=== PATIENT | male | born 1975 | race Caucasian/White ===

== ENCOUNTER 2025-06-12 11:25 | Emergency (ER) | payer SELFPAY ==
[~2025-06-12 11:25] MED LIST: Iopamidol 370 76% 100 ML VIAL ONE
[2025-06-12] MEDS ORDERED: Ondansetron PF 4 MG/2 ML Vial ONE (11:41)
[2025-06-12] MEDS ORDERED: HYDROmorphone 0.5 MG/0.5 ML SYRINGE ONE (11:41)
[2025-06-12] MEDS ORDERED: Lidocaine 1% w/Epinephrine 1:100K 20 ML VIAL ONE (11:44)
[2025-06-12] MEDS ORDERED: Lidocaine 1% (PF) 30 ML VIAL ONE (11:45)
[2025-06-12 11:47] LABS: #Basophils 0.1 thou/uL (0.0-0.2); #Eosinophils 0.1 thou/uL (0.0-0.7); #Lymphocytes 3.5 thou/uL (1.20-3.40); #Monocytes 0.5 thou/uL (0.11-0.59); #Neutrophils 4.2 thou/uL (1.40-6.50); %Basophils 1.3 % (0.0-1.0); %Eosinophils 1.3 % (0.0-10.0); %Lymphocytes 41.4 % (21.0-51.0); %Monocytes 6.4 % (0.0-10.0); %Neutrophils 49.6 % (42.0-75.0); Hematocrit 41.0 % (42.0-52.0); Hemoglobin 14.5 g/dL (14.0-18.0); Mean Corpuscular Hemoglobin 29.0 pg (27.0-31.0); Mean Corpuscular Volume 82.2 fl (78.0-98.0); Platelet Count 353 10x3/uL (130-400); Red Blood Cell (RBC) Count 4.99 mill/uL (4.70-6.10); White Blood Cell (WBC) Count 8.4 10x3/uL (4.8-10.8)
[2025-06-12 11:52] LABS: INR-International Normal Ratio 1.1; Prothrombin Time 13.8 sec (12.0-14.7)
[2025-06-12 11:53] LABS: PTT 24.2 sec (22.9-36.1)
[2025-06-12 12:00] LABS: ALT (SGPT) 28 U/L (Less than 45); AST (SGOT) 37 U/L (11-34); Albumin 4.5 g/dL (3.1-4.5); Alkaline Phosphatase 93 U/L (40-110); Anion Gap 18 mmol/L (10-20); BUN (Urea Nitrogen) 19 mg/dL (8.9-20.6); Bilirubin, Total 0.4 mg/dL (0.3-1.2); Calc. Creatinine Clearance 0 mL/min (70-130); Calcium 9.1 mg/dL (7.8-10.44); Carbon Dioxide 18 mmol/L (22-29); Chloride 106 mmol/L (98-107); Globulin 3.2 g/dL (2.4-3.5); Glucose 136 mg/dL (70-105); Potassium 3.7 mmol/L (3.5-5.1); Sodium 138 mmol/L (136-145)
[2025-06-12] MEDS ORDERED: HYDROcodone/Acetaminophen 5/325 mg Tablet ONE (13:28)
== END 2025-06-12 13:43 | disposition home or self-care (01) ==
LOC: NAV ERS 11:25
DX: S63.250A Unspecified dislocation of right index finger, initial encounter (principal); S01.01XA Laceration without foreign body of scalp, initial encounter; S40.011A Contusion of right shoulder, initial encounter; S50.01XA Contusion of right elbow, initial encounter; W17.89XA Other fall from one level to another, initial encounter; Y92.098 Other place in other non-institutional residence as the place of occurrence of the external cause
CPT/HCPCS: 12004; 26770; 70450; 70487; 71260; 72125; 74177; 80053; 85025; 85610; 85730; 96374; 96375; J1171; J7030; Q9967